=== PATIENT | female | born 1940 | race Two or more races ===

== ENCOUNTER 2024-10-23 11:22 | Emergency (ER) | payer OTHER ==
[~2024-10-23] VITALS: Ht 160 cm; Wt 81.6 kg
[2024-10-23 14:29] LABS: BASO % 0.2 % (0.1-1.2); EOS # 0.19 (0.04-0.54); EOS % 0.7 % (0.7-7.0); HEMOGLOBIN 13.3 g/dL (11.2-15.7); LYMPH % 71.7 % (19.3-53.1); MEAN CORPUSCULAR HEMOGLOBIN 26.2 pg (25.6-32.2); MONO # 1.09 (0.24-0.82); MONO % 4.2 % (4.7-12.5); NEUT # 5.89 (1.56-6.13); PLATELET COUNT 319 K/uL (163-369); RED BLOOD COUNT 5.07 M/uL (3.93-5.22); RED CELL DISTRIBUTION WIDTH 15.5 % (11.6-14.4)
[2024-10-23 14:41] LABS: CALCIUM 9.1 mg/dL (8.5-10.1); GFR 52.69; POTASSIUM 3.64 mEq/L (3.5-5.1)
[2024-10-23 15:04] LABS: ABG PH 7.428 (7.35-7.45); ABG PO2 141.9 mmHg (80-100); ABG pCO2 42.5 mmHg (35-45); BASE EXCESS 2.7 mmol/l; BICARBONATE 27.4 mmol/l (23-25); SaO2 99.2 %; Tco2 28.7 mmol/l
[2024-10-23 15:14] LABS: allen test SATISFACTORY; mode ROOM AIR; o2 21 %; puncture site RADIAL LEFT
[2024-10-23 15:21] LABS: COVID-19 AG NEGATIVE (NEGATIVE)
[2024-10-23 15:23] LABS: INFLUENZA A AG NEGATIVE (NEGATIVE); INFLUENZA B AG NEGATIVE (NEGATIVE)
[2024-10-23 15:23] LABS: URINE APPEARANCE Clear; URINE BILIRRUBIN Negative (NEGATIVE); URINE BLOOD Negative; URINE COLOR Yellow; URINE GLUCOSE Negative (NEGATIVE); URINE KETONE Negative (NEGATIVE); URINE LEUKOCYTE Negative; URINE NITRATE Negative; URINE PROTEIN Negative (NEGATIVE); URINE UROBILINOGEN 0.2 E.U./dl
[2024-10-23 16:07] LABS: URINE BACTERIA 2.3 uL (0.0-1933); URINE CAST 0.14 uL (0.0-1.40); URINE WBC 0.6 uL (0.0-23.2)
[2024-10-24] MEDS ORDERED: 0.9 % SODIUM CHLORIDE 1,000 ML IV SCH (09:00)
== END 2024-10-23 18:33 | disposition home or self-care (01) ==
LOC: ER 11:22
PROVIDERS: Emergency Medicine
DX: R06.02 Shortness of breath (principal); Z88.6 Allergy status to analgesic agent